=== PATIENT | male | born 1985 | race Caucasian/White ===

== ENCOUNTER 2019-11-17 03:04 | Outpatient (CLI) | payer OTHER, SELFPAY ==
[2019-11-18 22:32] LABS: SARS-CoV-2 RNA PCR Negative
== END 2019-11-17 03:05 | disposition home or self-care (01) ==
LOC: ANHCOVIDDT 03:04
PROVIDERS: PCP Emergency Medicine; Visit Provider Internal Medicine Gastroenterology
DX: Z01.812 Encounter for preprocedural laboratory examination (principal); Z11.59 Encounter for screening for other viral diseases
CPT/HCPCS: 87635; C9803; U0003

== ENCOUNTER 2019-11-19 01:36 | Day surgery (SDC) | payer OTHER, SELFPAY ==
[2019-11-10 12:55] VITALS: BMI 29.0
[2019-11-19 06:51] VITALS: BP 121/78; PULSE 70; RESP 18; TEMP 36.3; O2SAT 98
[2019-11-19] MEDS: LACTATED RINGERS 1,000 ML 150 ML IV CONT (06:55)
--- NOTE | 2019-11-19 07:25 | WPDANESEPPF ---
Anes - Initial Pre Proc Eval Procedure: Operation Date: 11/19/19 08:00 Proposed Procedures p Esophagogastroduodenoscopy - Barron Gordon MD Date/Time: 11/19/19 07:25 Surgeon: Barron Gordon MD Pre Op Diagnosis: abdominal Pain, Reflux Patient Data Age: 34 Gender: M Height: 6 ft 1 in Weight: 98 kg Last Vital Signs Temp 97.4 F L 11/19/19 06:51 Pulse 70 11/19/19 06:51 Resp 18 11/19/19 06:51 BP 121/78 11/19/19 06:51 Pulse Ox 98 11/19/19 06:51 Allergies Allergy/AdvReac Type Severity Reaction Status Date / Time No Known Allergies Allergy Verified 11/19/19 06:49 Home Medications Medication Instructions Recorded Confirmed Type omeprazole 40 mg capsule,delayed 40 mg PO DAILY 10/27/19 11/10/19 History release cetirizine [Zyrtec] 10 mg PO DAILY 11/10/19 11/10/19 History Patient hx anesthesia problems: none Family hx anesthesia problems: none PMFSH Family History Family History (Updated 11/18/19 @ 14:22 by Carmnecita Sharma [facility]) Mother Family history of drug dependence Father Hypertension Family history of kidney disease Family history of lung cancer Family history of malignant neoplasm of kidney Grandparent Diabetes mellitus Cancer Social History Social History (Updated 11/18/19 @ 14:22 by Carmencita Sharma [facility]) Smoking status: Never smoker Alcohol intake: current Substance use: never 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 Questions were solicited and answers provided to the satisfaction of the patient/family/POA.
--- NOTE | 2019-11-19 08:10 | WPDHPUPDATE1 ---
History and Physical Update Update Date/Time: 11/19/19 08:10 History and Physical has been reviewed, including an updated exam of the patient. There are NO changes in the patient's condition. Risks, benefits, and alternatives have been discussed and questions answered. Patient agrees to proceed with procedure.
[2019-11-19 08:41] VITALS: BP 109/48; PULSE 80; RESP 15; O2SAT 98
[2019-11-19 08:51] VITALS: BP 100/77; PULSE 73; RESP 20; O2SAT 95
[2019-11-19 09:01] VITALS: BP 116/77; PULSE 65; RESP 20; O2SAT 98
== END 2019-11-19 09:10 | disposition home or self-care (01) ==
PROVIDERS: PCP Emergency Medicine; Visit Provider Internal Medicine Gastroenterology
PROC: 0DJ08ZZ Inspection of Upper Intestinal Tract, Via Natural or Artificial Opening Endoscopic (ICD-10-PCS; CPT 43235; principal; 2019-11-19 08:00)
DX: K21.0 Gastro-esophageal reflux disease with esophagitis (principal); K44.9 Diaphragmatic hernia without obstruction or gangrene; K29.70 Gastritis, unspecified, without bleeding
CPT/HCPCS: 43239; 88305; J2704; J7120

== ENCOUNTER → 2021-01-17 01:50 | Outpatient (CLI) | payer OTHER, SELFPAY ==
[2021-01-17 17:27] LABS: SARS-CoV-2 RNA PCR Negative
== END ==
PROVIDERS: PCP Emergency Medicine; Visit Provider Surgery
DX: Z01.812 Encounter for preprocedural laboratory examination (principal); Z20.822 Contact with and (suspected) exposure to COVID-19
CPT/HCPCS: C9803; U0003; U0005

== ENCOUNTER 2021-01-20 01:32 | Day surgery (SDC) | payer OTHER, SELFPAY ==
[2021-01-13 15:29] VITALS: BMI 28.4
[2021-01-20] VITALS (8 sets, daily range): BP systolic 113–127; BP diastolic 67–87; PULSE 65–84; RESP 12–20; TEMP 36.2–36.6; O2SAT 94–100
[2021-01-20] MEDS: ACETAMINOPHEN 500 MG TABLET 1000 MG PO (06:40)
--- NOTE | 2021-01-20 06:40 | WPDANESEPPF ---
Anes - Initial Pre Proc Eval Procedure: Operation Date: 01/20/21 07:30 Proposed Procedures p Open Umbilical Hernia Repair With Mesh - Lucrecia Spencer MD Date/Time: 01/20/21 06:40 Surgeon: Lucrecia Spencer MD Pre Op Diagnosis: Incarcerated Umbilical Hernia Patient Data Age: 35 Gender: M Height: 1.85 m Weight: 97.72 kg Allergies Allergy/AdvReac Type Severity Reaction Status Date / Time No Known Allergies Allergy Verified 01/20/21 06:29 Home Medications Medication Instructions Recorded Confirmed Type omeprazole [Prilosec] 40 mg PO DAILY 01/13/21 01/20/21 History Patient hx anesthesia problems: none Family hx anesthesia problems: none Results Review: All pre-operative results and documents have been reviewed as part of the pre-operative evaluation. [facility] Past Medical History Medical History (Updated 01/20/21 @ 06:40 by Cruz Spann MD) ETOH abuse Fatigue GERD (gastroesophageal reflux disease) Peptic ulcer disease Snoring Umbilical hernia Surgical History Surgical History H/O sinus surgery Family History Family History Mother Family history of drug dependence Father Hypertension Family history of kidney disease Family history of lung cancer Family history of malignant neoplasm of kidney Grandparent Diabetes mellitus Cancer Social History Social History Smoking status: Never smoker Alcohol intake: current Alcohol use details: 1bottle vodka a week Substance use: never Living arrangements: alone 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 Gender identity (if verbalized by the patient): Male Spiritual care concerns: No Anes - Eval Final PreProcedure Day of Procedure 01/20/21 06:40 Patient weight: overweight Heart: regular rate and rhythm Lungs: clear to auscultation Airway: Mallampati scale class II and special considerations poor opening Neurological: alert and oriented Last oral intake: >/= 8 hours ASA classification: II Emergent: no Anesthetic plan: proceed Anesthesia type and monitoring: general LMA and standard monitoring Results Review: All pre-operative results and documents have been reviewed as part of the pre-operative evaluation. Informed Consent: The patient's anesthetic plan and its attendant risks and benefits were discussed with the patient/family/POA. Questions were solicited and answers provided to the satisfaction of the patient/family/POA.
[2021-01-20] MEDS: LACTATED RINGERS 1,000 ML 30 ML IV CONT (07:00)
[2021-01-20] MEDS: KETOROLAC 15 MG/ML VIAL (*BKC) IV PUSH (07:00)
--- NOTE | 2021-01-20 07:17 | WPDHPUPDATE1 ---
History and Physical Update Update Date/Time: 01/20/21 07:17 History and Physical has been reviewed, including an updated exam of the patient. There are NO changes in the patient's condition. Risks, benefits, and alternatives have been discussed and questions answered. Patient agrees to proceed with procedure.
[2021-01-20] MEDS: ceFAZolin 2 GM/D5W 50 ML 2 GM/50 ML BAG IVPB (07:25)
[2021-01-20] MEDS: BUPIVACAINE HCL 0.5% PF 30 ML VIAL INFILTRATE (07:49)
--- NOTE | 2021-01-20 08:25 | W.PM.PROC2 ---
Procedure Note - Detailed Date of Procedure 01/20/21 Pre-op Diagnosis Incarcerated Umbilical Hernia Post-op Diagnosis same Procedure Performed repair of incarcerated umbilical hernia with mesh Surgeon Lucrecia Spencer MD Anesthesia general Indications 35 y/o M c incarcerated umbilical hernia Findings incarcerated umbilical hernia c omentum and adjacent loop of SB Description of Procedure The patient was taken to the operating room placed in the supine position. After adequate induction of general anesthesia, the patient was prepped and draped in the normal sterile fashion. A time-out was then done to verify the patient's identity, as well as the procedure being performed. I began by localizing the area around the umbilicus. I then made a curvilinear incision in the infraumbilical fold. This was taken down to level fascia. I then was able to bluntly dissect around the umbilicus. I then carefully dissected the umbilicus off the underlying fascia. I then noted a small defect with incarcerated omentum and an adjacent loop of small intestine. I was able to mobilize the incarcerated tissue and reduce it back into the abdominal cavity. This left an approximately 2 cm defect. I then placed a 4.6 cm round piece of ventralex mesh in the underlay position. This was noted to have good, wide local coverage of the defect. I then closed this defect primarily with interrupted 0 Ethibond suture over the underlay mesh repair. I then reapproximated the umbilicus to the fascia with a 3 0 Vicryl U-stitch. The subcutaneous tissue was then closed with 3 0 Vicryl suture. The skin was closed with 4 0 Monocryl subcuticular suture. Dermabond was then placed on the wound. The patient tolerated the procedure well was extubated in the operating room postop. She will be transferred to the recovery room in stable condition. Implants 4.6 cm ventralex mesh in underlay position Estimated Blood Loss 5 Drains No Packing No Pathology none sent Complications No immediate complications Condition stable Disposition PACU
[2021-01-20] MEDS: oxyCODONE HCL (*CRX) 5 MG TAB IR PO (09:19)
== END 2021-01-20 10:03 | disposition home or self-care (01) ==
PROVIDERS: PCP Emergency Medicine; Visit Provider Surgery
PROC: (CPT 49587; principal; 2021-01-20 07:30)
DX: K42.0 Umbilical hernia with obstruction, without gangrene (principal); K21.9 Gastro-esophageal reflux disease without esophagitis
CPT/HCPCS: 49587; A9270; C1781; C9803; J0690; J1100; J1885; J2250; J2405; J2704; J3010; J7120; U0003; U0005